=== PATIENT | male | born 1960 | race Hispanic/Latino ===

== ENCOUNTER 2025-07-30 09:48 | Emergency (ER) | payer BC, OTHER ==
[~2025-07-30] VITALS: Ht 172.7 cm; Wt 76.4 kg
--- NOTE | 2025-07-30 09:55 | NUR ---
PATIENT IN ROOM
[2025-07-30 10:25] LABS: IMMATURE GRANULOCYTE ABSOLUTE 0.06 K/uL (0-1); NUCLEATED RED BLOOD CELLS 0.0 % (0.0-0.19); PLATELET COUNT (AUTO) 185 K/uL (130-400); RED BLOOD CELL COUNT(AUTO) 5.10 MIL/uL (4.50-6.20); RED CELL DISTRIBUTION WIDTH 12.5 % (11.0-15.5); WHITE BLOOD COUNT (AUTO) 10.7 K/uL (4.8-10.8)
[2025-07-30 10:30] LABS: CREATININE 1.1 mg/dL (0.5-1.3); GLOMERULAR FILTR. RATE CALC 75.0 mL/min (>90); GLUCOSE,RANDOM 140.0 mg/dL (70-105); SODIUM SERUM 134.0 mmol/L (136-145); UREA NITROGEN, BLOOD 11.0 mg/dL (7-18)
[2025-07-30 10:38] VITALS: TEMP 103
[2025-07-30 10:38] LABS: ASPARTATE AMINOTRANSFERASE 33.0 U/L (10-37); TOTAL PROTEIN, SERUM 7.8 g/dL (6.0-8.3)
[2025-07-30] MEDS: 0.9%NACL 1000ML 1,000 ML IV ONE (10:38)
--- NOTE | 2025-07-30 11:36 | HMCIMG ---
EXAM: CR Chest, 1 View. CLINICAL HISTORY: fever COMPARISON: None provided. FINDINGS: LUNGS: There is no mass, infiltrate, or acute pulmonary abnormality. PLEURAL SPACES: No evidence of pleural effusion or pneumothorax. MEDIASTINUM: The cardiomediastinal silhouette is within normal limits. BONES: No acute osseous abnormality. IMPRESSION: No acute cardiopulmonary pathology is evident. /[place]
[2025-07-30 12:02] LABS: INFLUENZA TYPE B Negative For Type B (NEGATIVE)
[2025-07-30 12:15] LABS: COVID19 (SARS ANTIGEN RAPID) PRESUMPTIVE NEGATIVE (NEGATIVE)
[2025-07-30 12:18] LABS: INFLUENZA TYPE A Positive For Type A (NEGATIVE)
[2025-07-30 12:27] LABS: ADD UA MICROSCOPIC YES; APPEARANCE,URINE CLEAR (CLEAR); GLUCOSE, URINE (UA) >=1000 mg/dL (NEGATIVE); LEUKOCYTE ESTERASE ,URINE 25 Leu/uL (NEGATIVE); NITRATE,URINE NEGATIVE (NEGATIVE); OCCULT BLOOD,URINE +- (TRACE) (NEGATIVE)
[2025-07-30 12:28] LABS: SQUAMOUS EPITHELIAL CELL,UR MOD /HPF (0-2)
[2025-07-30] MEDS ORDERED: OSEL75 PO (12:58)
--- NOTE | 2025-07-30 12:58 | ERN ---
ED Note History of Present Illness Stated Complaint: DIZZY Chief Complaint: Dizzy/Light Headed Time Seen by MD: 09:50 Dictation: 64-year-old male presenting to the emergency department with generalized weakness dizziness and fever patient reports cough cold congestion and body aches. Patient denies abdominal pain. Allergies: Coded Allergies: No Known Drug Allergies (Unverified Allergy, Unknown, 07/30/25) Past Medical History Past Medical History: Diabetes-Type II, Hypertension Surgical History: Other Surgical History Other: SKIN BX Review of System Dictation Constitutional: Per HPI Eyes: Negative for injury, pain,redness, and discharge ENT: Negative for injury,pain or swelling Cardiovascular: Negative for chest pain, palpitations, and edema Respiratory: Per HPI Abdomen/GI: Negative for abdominal pain, nausea, vomiting, diarrhea, and constipation Back: Negative for injury and pain : Negative for injury, bleeding and discharge MS/Extremity: Negative for injury and deformity Skin: Negative for rash, and discoloration Neuro: Per HPI Initial Vital Sign VS Vital Signs Date Time Temp Pulse Resp B/P (MAP) Pulse Ox O2 Delivery O2 Flow Rate FiO2 07/30/25 09:49 102.9 105 16 139/73 95 Room Air 0 07/30/25 09:55 21 Physical Exam Dictation General: awake, alert, NAD, febrile Head/Face: Normocephalic, atraumatic Eyes: PERRL, EOMI, vision at baseline ENT: oral cavity clear, TMs clear, no signs of infection Neck: Trachea midline, supple, no nuchal rigidity Cardiovascular: RRR, normal S1/S2, No MRGs, no JVD Respiratory: CTAB, no respiratory distress, No rales or wheezes Abdomen: Soft, non-tender, non-distended, normal bowel sounds, no guarding or rebound. Skin: Warm, dry, normal turgor, no rash MS/Extremity: Pulses equal, no cyanosis, neurovascular intact, FROM Neuro: COAx4, GCS 15, strength 5/5, CN 2-12 intact, normal cerebellar exam, normal gait, Psych: Normal behavior, mood, and affect normal Results (Laboratory/Radiology) Laboratory/Radiology Laboratory Tests Test 07/30/25 10:05 07/30/25 10:21 White Blood Count 10.7 K/uL (4.8-10.8) Red Blood Count 5.10 MIL/uL (4.50-6.20) Hemoglobin 15.3 g/dL (14.0-18.0) Hematocrit 45.6 % (42-54) Mean Corpuscular Volume 89.4 fL (79-99) Mean Corpuscular Hemoglobin 30.0 pg (27.0-33.0) Mean Corpuscular Hemoglobin Concent 33.6 g/dL (32.0-36.0) Red Cell Distribution Width 12.5 % (11.0-15.5) Platelet Count 185 K/uL (130-400) Mean Platelet Volume 9.5 fL (7.5-10.5) Immature Granulocyte % (Auto) 0.6 % (0-1) Neutrophils (%) (Auto) 85.8 % (40.0-77.0) H Lymphocytes (%) (Auto) 4.9 % (21.0-51.0) L Monocytes (%) (Auto) 8.4 % (3.0-13.0) Eosinophils (%) (Auto) 0.1 % (0.0-8.0) Basophils (%) (Auto) 0.2 % (0.0-5.0) Neutrophils # (Auto) 9.2 K/uL (1.8-7.7) H Lymphocytes # (Auto) 0.5 K/uL (1.0-4.8) L Monocytes # (Auto) 0.9 K/uL (0.1-1.0) Eosinophils # (Auto) 0.01 K/uL (0.00-0.70) Basophils # (Auto) 0.02 K/uL (0.00-0.20) Absolute Immature Granulocyte (auto 0.06 K/uL (0-1) Nucleated Red Blood Cells 0.0 % (0.0-0.19) White Cell Morphology Comment See comments Sodium Level 134 mmol/L (136-145) L Potassium Level 3.6 mmol/L (3.5-5.1) Chloride Level 102 mmol/L (101-111) Carbon Dioxide Level 24 mmol/L (21-32) Blood Urea Nitrogen 11 mg/dL (7-18) Creatinine 1.1 mg/dL (0.5-1.3) Glomerular Filtration Rate Calc 75 mL/min (>90) Random Glucose 140 mg/dL (70-105) H Lactic Acid Level 1.6 mmol/L (0.8-2.5) Total Calcium 8.6 mg/dL (8.5-10.1) Total Bilirubin 0.5 mg/dL (0.2-1.0) Direct Bilirubin 0.2 mg/dL (0.0-0.3) Aspartate Amino Transf (AST/SGOT) 33 U/L (10-37) Alanine Aminotransferase (ALT/SGPT) 43 U/L (12-78) Alkaline Phosphatase 81 U/L (50-136) Troponin I High Sensitivity 5 ng/L (4-75) Total Protein 7.8 g/dL (6.0-8.3) Albumin 3.8 g/dL (3.5-5.0) Urine Color LIGHT-YELLOW (YELLOW) Urine Appearance CLEAR (CLEAR) Urine pH 6.0 (5.0-8.0) Urine Specific [place] 1.037 (1.001-1.031) Urine Protein 30 mg/dL (NEGATIVE) H Urine Glucose (UA) >=1000 mg/dL (NEGATIVE) H Urine Ketones 40 mg/dL (NEGATIVE) H Urine Occult Blood +- (TRACE) (NEGATIVE) H Urine Nitrate NEGATIVE (NEGATIVE) Urine Bilirubin NEGATIVE mg/dL (NEGATIVE) Urine Urobilinogen 0.2 mg/dL (0.2-1.0) Urine Leukocyte Esterase 25 Silvia/uL (NEGATIVE) H Urine RBC 2-5 /HPF (0-1) H Urine WBC 2-5 /HPF (0-1) H Urine Squamous Epithelial Cells MOD /HPF (0-2) Urine Bacteria RARE /HPF (None Seen) Influenza Type A Antigen Positive For Type A Influenza Type B Antigen Negative For Type B SARS-CoV-2 Antigen (Rapid) PRESUMPTIVE NEGATIVE Labs Reviewed?: Yes EKG: (+) NSR, (+) rhythm, (+) nonspecific ST T wave chg, (+) unchanged ED Course ED Course Orders Procedure Category Date Status Time 12 Lead Ekg Tracing- EKG 07/30/25 Logged Technical 10:00 Basic Metabolic Panel LAB 07/30/25 Complete 10:00 Blood Cult BARBARA 07/30/25 In Process 10:00 Cbc With Differential LAB 07/30/25 Complete 10:00 Hepatic Function Panel LAB 07/30/25 Complete 10:00 Lactic Acid LAB 07/30/25 Complete 10:00 Urinalysis Profile LAB 07/30/25 Complete 10:00 Troponin I High LAB 07/30/25 Complete Sensitivity 10:00 Chest 1vw RAD 07/30/25 Resulted 10:00 Ceftriaxone 2gm Vial PHA 07/30/25 Complete (Rocephin 2gm Inj) 10:00 0.9%Nacl 1000ml (Ns PHA 07/30/25 Complete 1000ml) 10:00 Acetaminophen 500mg PHA 07/30/25 Complete Tab (Tylenol 500mg T 10:00 Covid19 (Sars Antigen LAB 07/30/25 Complete Rapid) 10:00 Influenza Type A & B, LAB 07/30/25 Complete Rapid 10:00 Current Medications Medications (Trade) Dose Ordered Sig/Malgorzata Route PRN Reason Start Time Stop Time Status Last Admin Dose Admin Acetaminophen (TYLenol 500MG TAB) 1,000 mg ONCE STAT PO 07/30/25 10:00 07/30/25 10:04 DC 07/30/25 10:38 Ceftriaxone Sodium (Rocephin 2gm Inj) 2 gm ONCE STAT IVPB 07/30/25 10:00 07/30/25 10:04 DC 07/30/25 10:39 Sodium Chloride 1,000 ml @ 0 mls/hr ONCE ONCE IV 07/30/25 10:00 07/30/25 10:04 DC 07/30/25 10:38 Vital Signs Date Time Temp Pulse Resp B/P (MAP) Pulse Ox O2 Delivery O2 Flow Rate FiO2 07/30/25 12:36 99.0 87 22 121/69 96 Room Air* 0 07/30/25 10:38 102.9 07/30/25 09:55 102.9 105 16 139/73 95 Room Air* 0 07/30/25 09:49 102.9 105 16 139/73 95 Room Air 0 Medical Decision Making MDM MDM: Differential diagnosis: Rationale: Tests considered and ordered secondary to shared decision making include: Previous outside records reviewed: Old ER visits. Risk of complication and/or morbidity or mortality of patient management: None Medications-Per medication reconciliation Need for hospitalization: Patient does not meet criteria for hospitalization. Need for emergency major/minor surgery: No There are no social concerns with this patient. Prescription drug management Prescriptions will include symptomatic care Patient's prior external medical records from other ER visits were reviewed by me as indicated. Prior testing and results from previous visits were reviewed. Prior tests were taken into account with medical decision making and resource utilization, independent historian/historians were used to obtain complete medical history. I independently interpreted the test that were performed, results were reviewed by me and considered findings on radiology if ordered. Medical management and examination interpretation discussions were had by me with other qualified healthcare professionals as indicated for the patient's care. 64-year-old male with influenza a, stable exam negative workup no signs of focal bacterial infection urine and chest x-ray clear, vitals improved stable for outpatient treatment prescriptions given. DX & DISP Disposition: Discharge Departure Impression: Primary Impression: Influenza A Additional Impressions: Acute dehydration, Fever Condition: Stable Scripts Oseltamivir Phosphate (Tamiflu) 75 Mg Cap 75 MG PO BID for 5 Days, #10 CAP Prov: MINA HINTON MD 07/30/25 Referrals: VELASQUEZ ARCINIEGA (PCP) MINA HINTON MD Jul 30, 2025 12:58
[2025-07-30 14:11] VITALS: BP 120/76; PULSE 87; RESP 22; TEMP 99; O2SAT 95
--- NOTE | 2025-07-30 18:09 | EKG ---
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
== END 2025-07-30 14:12 | disposition home or self-care (01) ==
LOC: EDH 09:48
DX: J10.1 Influenza due to other identified influenza virus with other respiratory manifestations (principal); E86.0 Dehydration; R42 Dizziness and giddiness; I10 Essential (primary) hypertension; E11.9 Type 2 diabetes mellitus without complications; Z20.822 Contact with and (suspected) exposure to COVID-19
CPT/HCPCS: 99284; 96365; 71045; 87426; 80076; 84484; 80048; 85025; 87040 ×2; 87804 ×2; 83605; 81001; 36415; 93005; J7030; J0696